=== PATIENT | female | born 2005 | race African-American/Black ===

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

== ENCOUNTER 2024-12-16 12:22 | Outpatient (CLI) | payer OTHER, SELFPAY ==
--- NOTE | 2024-12-16 11:30 | CRLHL7_ITS ---
For Patients: As a result of the Century Cures Act, medical imaging exams and procedure reports are released immediately into your electronic medical record. You may view this report before your referring provider. If you have questions, please contact your health care provider. OB ULTRASOUND FOLLOWUP GROWTH, 12/16/2024 CLINICAL HISTORY: Morbid obesity. COMPARISON: None. TECHNIQUE: Transabdominal OB ultrasound. Real time david scale imaging of the fetus was performed. Evaluate anatomy. FINDINGS: TANISHA by US: 03/16/2025. GA: 27 weeks 1 day. Gestation: Single. Cervix: Not visualized. Positioning: Vertex. Amniotic Fluid: 6.2 cm. Placenta: Technique: Transabdominal. Placenta Position: Anterior. Dopplers: Heart rate: 139 bpm. Biometry: BPD: 6.9 cm, 27 weeks 5 days. 60.7% HC: 26.3 cm, 28 weeks 4 days. 69% AC: 22.0 cm, 26 weeks 3 days. 22% FL: 5.2 cm, 27 weeks 3 days. 51% EFW: 1034 grams, 2 lb 4 oz. Age by this US: 27 weeks 4 days. TANISHA by this US: 03/13/2025. Percentile by TANISHA: 38% IMPRESSION: 1. Sonographic gestational age 27 weeks 4 days and sonographic due date 03/13/2025. Good correlation with dates. 2. Estimated weight 38th percentile. Abdominal circumference 22nd percentile. Aravind Suresh M.D. Diagnostic Radiologist [email or web address] Transcribed: 2:36 pm DW/Dictated by: Aravind Suresh MD @ 12/16/2024 1:27:00 PM (Electronically Signed)
== END 2024-12-16 12:23 | disposition home or self-care (01) ==
LOC: US 12:22
PROVIDERS: Visit Provider Physician Assistant
DX: O99.212 Obesity complicating pregnancy, second trimester (principal); E66.01 Morbid (severe) obesity due to excess calories; Z68.41 Body mass index [BMI] 40.0-44.9, adult; Z3A.27 27 weeks gestation of pregnancy
CPT/HCPCS: 76816; 80306; 86592; 86787; 86803